=== PATIENT | female | born 1970 | race Caucasian/White ===

== ENCOUNTER 2023-08-30 08:37 | Day surgery (SDC) | payer MEDICAID ==
[~2023-08-30] VITALS: Ht 154.9 cm; Wt 68.0 kg
[2023-08-30] MEDS ORDERED: MEPERIDINE 100 MG INJ. 100 MG/ML VIAL ONE (09:08)
[2023-08-30] MEDS ORDERED: SIMETHICONE 40 MG/0.6 ML ML ONE (09:08)
[2023-08-30] MEDS ORDERED: MIDAZOLAM HCL 5 MG/5 ML VIAL ONE (09:09)
[2023-08-30 13:13] VITALS: O2SAT 99
[2023-08-30 14:45] VITALS: TEMP 97.1
[2023-08-30 16:13] VITALS: BP_SYST 126; PULSE 79; RESP 10
== END 2023-08-30 11:42 | disposition home or self-care (01) ==
LOC: SDS 08:37 → SMU 08:38 → SDS 11:42
PROVIDERS: ATTEND Internal Medicine Gastroenterology
DX: R10.9 Unspecified abdominal pain (principal); K63.5 Polyp of colon; K64.8 Other hemorrhoids; E78.5 Hyperlipidemia, unspecified; K21.9 Gastro-esophageal reflux disease without esophagitis; F41.9 Anxiety disorder, unspecified; Z90.49 Acquired absence of other specified parts of digestive tract; Z90.710 Acquired absence of both cervix and uterus; Z79.899 Other long term (current) drug therapy
CPT/HCPCS: 45385; 45380; 88305; 99152; G0378; J2250; J2175